=== PATIENT | female | born 1965 ===

== ENCOUNTER 2025-02-20 09:00 | Day surgery (SDC) | payer OTHER ==
[2025-02-14 11:47] VITALS: BP 150/80
[~2025-02-20] VITALS: Ht 162.6 cm; Wt 71.7 kg
[~2025-02-20 09:00] MED LIST: GLIMEPIRIDE4 M1; METFORMIN HCL1000 M2; ROSUVASTATIN CA20 MG; TRIGLIDE; ZESTRIL10 M1
[2025-02-20] MEDS ORDERED: CEFTRIAXONE SODIUM 2,000 MG VIAL ONE (09:45)
[2025-02-20] MEDS ORDERED: METRONIDAZOLE/SODIUM CHLORIDE 500 MG/100 ML PIGGYBACK IV ONE (09:45)
[2025-02-20] MEDS ORDERED: BUPIVACAINE HCL/MPF 0.5% 30ML VIAL ONE ×2 (11:22→11:31)
[2025-02-20] MEDS ORDERED: DIBUCAINE 30 GM TUBE ONE (11:22)
[2025-02-20] MEDS ORDERED: POVIDONE-IODINE 118 ML BOTT TOP ONE (11:22)
[2025-02-20] MEDS ORDERED: LIDOCAINE HCL 1%/EPINEPHRINE 20ML VIAL IJ ONE (11:23)
[2025-02-20] MEDS ORDERED: PERCOCET 5-3251 EACH PO (11:27)
[2025-02-20] MEDS ORDERED: NEURONTIN300 MG PO (11:27)
[2025-02-20] MEDS ORDERED: INTESTINEX680 M1 PO (11:27)
[2025-02-20] MEDS ORDERED: MORPHINE SULFATE 4 MG/ML VIAL IV ONE (15:35)
== END 2025-02-20 18:00 | disposition home or self-care (01) ==
LOC: CIR.AMB 09:00
PROVIDERS: ATTEND Surgery
DX: K64.2 Third degree hemorrhoids (principal); K64.4 Residual hemorrhoidal skin tags; K62.5 Hemorrhage of anus and rectum; Z88.6 Allergy status to analgesic agent